=== PATIENT | female | born 1925 | race Caucasian/White ===

== ENCOUNTER → 2016-02-12 | Outpatient (CLI) | payer BC ==
[~2016-02-12] MED LIST: ALEN5TAB2 PO; AMOX875T PO; ASPEC81 PO; ASPI81TA21 PO; ATEN-173 PO; BIOTCAP2 PO; CALCTAB7 PO; CLTP PO; GLUC250C5 PO; GLUCTAB7 PO; HYDR12.55 PO; MAGN400T6 PO; MULT-506 PO; NTRGSL/4 UT; OMEP20CA9 PO; PANT40TA PO; PRAV40TA PO; SIMV5TAB2 PO; [UNRECOGNIZED DRUG - REMARK] PO; biotin PO
[2016-02-12 17:50] LABS: ALT/SGPT 27 U/L (12-78); AST/SGOT 19 U/L (15-37); BLOOD UREA NITROGEN 28 mg/dl (7-18); BUN/CREATININE RATIO 25.8 (10-20); CALCIUM 9.8 mg/dl (8.5-10.1); CARBON DIOXIDE 31 mmol/L (21-32); CHLORIDE 109 mmol/L (98-107); GLUCOSE 85 mg/dl (70-99); MAGNESIUM 2.4 mg/dl (1.8-2.4); POTASSIUM 4.2 mmol/L (3.5-5.1); SODIUM 145 mmol/L (136-145)
[2016-02-12 17:57] LABS: ALB/GLOB RATIO 1.3 (0.9-2); ALKALINE PHOSPHATASE 43 U/L (45-117); CHOLESTEROL 198 mg/dl (0-200); CHOLESTEROL/HDL RATIO 2.1; HDL CHOLESTEROL 94 mg/dl; LDL CHOLESTEROL CALCULATED 94 mg/dl; TRIGLYCERIDES 52 mg/dl (0-150); VERY LOW DENSITY LIPOPROT CALC 10 mg/dl
== END | disposition home or self-care (01) ==
LOC: C.LABPVFM 10:23
PROVIDERS: ATTEND Family Medicine
DX: E78.5 Hyperlipidemia, unspecified (principal); M81.0 Age-related osteoporosis without current pathological fracture; E83.42 Hypomagnesemia; R10.13 Epigastric pain

== ENCOUNTER 2016-03-23 20:41 | Emergency (ER) | payer BC ==
[~2016-03-23] VITALS: Ht 165.1 cm; Wt 57.6 kg
[~2016-03-23 20:41] MED LIST changes: -AMOX875T PO; -ASPI81TA21 PO; -BIOTCAP2 PO; -CALCTAB7 PO; -GLUCTAB7 PO; -HYDR12.55 PO; -MAGN400T6 PO; -NTRGSL/4 UT; -PANT40TA PO; -PRAV40TA PO
[2016-03-23 20:52] VITALS: TEMP 36.6; Ht 165.1 cm; Wt 57.6 kg
[2016-03-23] MEDS ORDERED: SODIUM CHLORIDE 0.9% 1000ML 1,000 ML IV STA (21:56)
[2016-03-23] MEDS ORDERED: SODIUM CHLORIDE 0.9% 1000ML 250 ML IV STA (21:56)
--- NOTE | 2016-03-23 21:58 | EMERGENCY ROOM VISIT NOTE ---
History Report prepared by Tarik: Joey Rowan Under the Supervision of: Dr. Joey Yepez M.D. First contact with patient: 21:44 Chief Complaint: ABDOMINAL PAIN Stated Complaint: ABD PAIN Nursing Triage Summary: abd pain since 1800 History of Present Illness The patient is a 89 year old female who presents to the Emergency Room with complaints of waxing and waning lower abdominal pain beginning about 3 hours ago. She notes she has some chest pain yesterday lasting a few seconds which resolved on its own, but she denies any cough or diarrhea. She has never had these symptoms before. The patient denies any previous abdominal surgeries, and denies any history of diverticulitis, or kidney stones. She denies taking any blood thinners. 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 She is feeling much better at present Source of History: patient, family Onset: about 3 hours ago Position: abdomen (lower) Quality: other (abdominal pain) Timing: waxes/wanes Associated Symptoms: + chest pain (lasting a few seconds and resolving on its own), No cough, No diarrhea Review of Systems See HPI for pertinent positives & negatives. A total of 10 systems reviewed and were otherwise negative. Past Medical & Surgical Medical Problems: (1) History of arthritis Old medical records were reviewed. Nurse's notes were reviewed and I agree with. Family History No pertinent family history stated. Social History Smoking Status: Never Smoker Drug Use: none Marital Status: Current/Historical Medications Scheduled Amoxicillin & Pot Clavulanate (Augmentin 875-125 mg), 875 MG PO BID Aspirin Enteric Coated (Ecotrin Or Generic), 81 MG PO DAILY Atenolol (Tenormin), 25 MG PO DAILY Biotin (Biotin 5000), 1 CAP PO DAILY Calcium Carbonate-Vitamin D W/ (Caltrate 600 Plus), 1 TAB PO DAILY Jhmqyhogoxr-Rgslthnhabn-Rmr C- (Glucosamine Chondroitin), TABS PO DAILY Hydrochlorothiazide (Hydrochlorothiazide), 1 TAB PO DAILY Magnesium Oxide (Mag-Ox), 400 MG PO DAILY Multivitamin (Multivitamin), 1 TAB PO DAILY Nitroglycerin (Nitrostat), 0.4 MG UT PRN Pantoprazole (Protonix), 40 MG PO DAILY Pravastatin Sodium (Pravachol), 1 TAB PO DAILY Allergies Coded Allergies: No Known Allergies (Verified , NONE, 1/27/13) Physical Exam Vital Signs Date Time Temp Pulse Resp B/P Pulse Ox O2 Delivery O2 Flow Rate FiO2 03/24/16 00:21 63 16 167/81 99 03/23/16 20:52 36.6 62 18 207/85 98 Room Air Physical Exam General: Non ill appearing older female. Well developed well nourished in no acute distress, breathing comfortably on room air. Normal speech HEENT: Normal cephalic atraumatic. Pupils are equal round and reactive to light. Sclerae anicteric. He Extraocular movements are intact. Oropharynx is pink with moist mucous membranes. No swelling of the mouth lips or tongue. Neck: Supple with a midline trachea. No meningeal signs or stiffness, no JVD or bruits. No Stridor. Chest: Clear to auscultation bilaterally. No wheezes or rhonchi. No increased work of breathing. Heart: regular rate and rhythm. Abdomen: Minimal tenderness in lower mid abdomen. Extremities: No cyanosis clubbing or edema. No calf tenderness or assymetry Spine/Back. Non tender to palpation. No CVA tenderness Skin: Good turgor without rashes. Neurologic exam: Cranial nerves two through 12 are intact. Motor and sensation are intact and symmetrical throughout. Medical Decision & Procedures ER Provider Diagnostic Interpretation: CT results as stated below per my review and radiologist interpretation: CT OF THE ABDOMEN AND PELVIS WITHOUT CONTRAST, STONE PROTOCOL FINDINGS: No renal, ureteral or bladder calculi are identified. A cyst within the upper pole of the left kidney is noted. There is no hydronephrosis or hydroureter. Evaluation of the remainder of the abdomen and pelvis is significantly compromised on this unenhanced exam. There is a gallstone within the gallbladder. There is no pericholecystic or peripancreatic infiltration. Unenhanced images of liver, spleen, adrenal glands and pancreas are unremarkable. There is extensive sigmoid diverticulosis. Evaluation for diverticulitis is compromised on this exam but there is no convincing evidence for acute diverticulitis. There is a small amount of fluid within the pelvis, a nonspecific finding. No lymphadenopathy is present. No suspicious osseous lesion is present. The bladder is mildly distended. There may be minimal infiltration adjacent to the bladder. IMPRESSION: 1. No urinary calculi or hydronephrosis. 2. Cholelithiasis. 3. Small amount of fluid within the pelvis, a nonspecific finding. 4. Extensive sigmoid diverticulosis without evidence for acute diverticulitis although this exam is compromised given the lack of IV and oral contrast. 5. Mild distention of the bladder with possible minimal adjacent infiltration. This could be correlated with urinalysis. Electronically signed by: Martinez Diaz M.D. 03/23/2016 11:07 PM Dictated Date/Time: 03/23/2016 10:56 PM Laboratory Results 03/23/16 22:12 Red Blood Count 4.32, Mean Corpuscular Volume 88.0, Mean Corpuscular Hemoglobin 29.4, Mean Corpuscular Hemoglobin Concent 33.4, Mean Platelet Volume 10.9, Neutrophils (%) (Auto) 49.4, Lymphocytes (%) (Auto) 36.5, Monocytes (%) (Auto) 11.5, Eosinophils (%) (Auto) 2.1, Basophils (%) (Auto) 0.3, Neutrophils # (Auto ) 2.88, Lymphocytes # (Auto) 2.13, Monocytes # (Auto) 0.67, Eosinophils # (Auto ) 0.12, Basophils # (Auto) 0.02 03/23/16 22:12 Test 03/23/16 22:12 03/23/16 22:21 White Blood Count 5.83 K/uL (4.8-10.8) Red Blood Count 4.32 M/uL (4.2-5.4) Hemoglobin 12.7 g/dL (12.0-16.0) Hematocrit 38.0 % (37-47) Mean Corpuscular Volume 88.0 fL (80-100) Mean Corpuscular Hemoglobin 29.4 pg (25-34) Mean Corpuscular Hemoglobin Concent 33.4 g/dl (32-36) Platelet Count 275 K/uL (130-400) Mean Platelet Volume 10.9 fL (7.4-10.4) Neutrophils (%) (Auto) 49.4 % Lymphocytes (%) (Auto) 36.5 % Monocytes (%) (Auto) 11.5 % Eosinophils (%) (Auto) 2.1 % Basophils (%) (Auto) 0.3 % Neutrophils # (Auto) 2.88 K/uL (1.4-6.5) Lymphocytes # (Auto) 2.13 K/uL (1.2-3.4) Monocytes # (Auto) 0.67 K/uL (0.11-0.59) Eosinophils # (Auto) 0.12 K/uL (0-0.5) Basophils # (Auto) 0.02 K/uL (0-0.2) RDW Standard Deviation 42.3 fL (36.4-46.3) RDW Coefficient of Variation 13.1 % (11.5-14.5) Immature Granulocyte % (Auto) 0.2 % Immature Granulocyte # (Auto) 0.01 K/uL (0.00-0.02) Urine Color YELLOW Urine Appearance CLEAR (CLEAR) Urine pH 7.0 (4.5-7.5) Urine Specific [place] 1.006 (1.000-1.030) Urine Protein NEG (NEG) Urine Glucose (UA) NEG (NEG) Urine Ketones NEG (NEG) Urine Occult Blood NEG (NEG) Urine Nitrite NEG (NEG) Urine Bilirubin NEG (NEG) Urine Urobilinogen NEG (NEG) Urine Leukocyte Esterase SMALL (NEG) Urine WBC (Auto) 1-5 /hpf (0-5) Urine RBC (Auto) 0-4 /hpf (0-4) Urine Hyaline Casts (Auto) 0 /lpf (0-5) Urine Epithelial Cells (Auto) 10-20 /lpf (0-5) Urine Bacteria (Auto) NEG (NEG) Anion Gap 7.0 mmol/L (3-11) Est Creatinine Clear Calc Drug Dose 35.3 ml/min Estimated GFR () 59.0 Estimated GFR (Non- 50.9 BUN/Creatinine Ratio 28.8 (10-20) Calcium Level 9.8 mg/dl (8.5-10.1) Total Bilirubin 0.8 mg/dl (0.2-1) Direct Bilirubin 0.2 mg/dl (0-0.2) Aspartate Amino Transf (AST/SGOT) 25 U/L (15-37) Alanine Aminotransferase (ALT/SGPT) 26 U/L (12-78) Alkaline Phosphatase 58 U/L (45-117) Total Protein 7.3 gm/dl (6.4-8.2) Albumin 3.6 gm/dl (3.4-5.0) Lipase 228 U/L (73-393) Bedside Troponin I 0.010 ng/ml (0-0.045) Laboratory studies as stated above per my review. Medications Administered Medications (Trade) Dose Ordered Sig/Zurdo Route Start Time Stop Time Status Last Admin Dose Admin Sodium Chloride 250 ml @ 999 mls/hr Q16M STAT IV 03/23/16 21:56 03/23/16 22:11 DC 03/23/16 21:56 999 MLS/HR Sodium Chloride (Nss 1000ml) 1,000 ml @ 100 mls/hr Q10H STAT IV 03/23/16 21:56 03/24/16 07:55 03/23/16 21:56 100 MLS/HR Amoxicillin/ Clavulanate Potassium (Augmentin 875MG Home Pack) 1 homepack UD ONCE PO 03/24/16 00:00 03/24/16 00:01 DC 03/24/16 00:00 1 HOMEPACK ECG Indication: abdominal pain Rate (beats per minute): 62 Rhythm: normal sinus Findings: RBBB (incomplete), no acute ischemic change Comparison ECG Date: March 05, 2012 Change: no significant change ED Course 2145: Past medical records reviewed. The patient was evaluated in room C2B, and a complete history and physical examination were performed. 2156: Ordered NSS 1,000 ml @ 100 mls/hr IV, and NSS 250 ml @ 999 mls/hr IV. 0000: Ordered Amoxicillin/Clavulanate Potassium 1 homepack PO. 0005: Upon reevaluation, the patient is doing well. I discussed the results and treatment plan with the patient. She verbalized agreement of the treatment plan. The patient was discharged home. Medical Decision Differentials include kidney stone, bowel obstruction, diverticulitis, infection , and electrolyte or metabolic abnormality. This patient comes in as described above. She was placed in room CT. She's been having lower abdominal pain .she feels better at present. she looks well on exam .she is afebrile. IV access established and she was hydrated with IV normal saline. she did not require any pain medication. she's had no white count or fever to suggest infection . she's had no acute electrolyte or metabolic abnormalities. I did a CAT scan of her abdomen and she has extensive diverticulosis but no definite diverticulitis. she does of distended bladder.a UAhas been ordered as well. She's remained stable. Reading her CAT scan it's possible that she has an early diverticulitis. Her urinalysis is also pending. I will put her on Augmentin which will cover both these possibilities .she desires to go home and a culture is pending from the as well. She was given Augmentin 875 mg here as well as prescription for twice a day for 10 days. She was given use [id number] Tylenol for pain but do not exceed the over-the- counter recommended dosages. Return if: increasing pain, worsening of symptoms , fever or chills, any new problems or concerns. She is happy with plan and discharged to home. She is followed regular doctor next 1-2 days for recheck. Impression Primary Impression: Lower abdominal pain Additional Impression: Diverticulitis Scribe Attestation The scribe's documentation has been prepared under my direction and personally reviewed by me in its entirety. I confirm that the note above accurately reflects all work, treatment, procedures, and medical decision making performed by me. Departure Information Dispostion Home / Self-Care Prescriptions Amoxicillin & Pot Clavulanate (Augmentin 875-125 mg) 1 Tab Tab 875 MG PO BID for 10 Days, #20 TAB Prov: Joey Yepez M.D. 03/23/16 Referrals Kim Saldana M.D. (PCP) Patient Instructions [facility] Additional Instructions Rest. Drink plenty of fluids. Use Augmentin 875 mg twice a day for 10 days total For pain, may use Tylenol a maximum of 650 mg every 6 hours. Do not take with any other medications containing acetaminophen/Tylenol Return if: Increasing pain, fever chills, worsening of symptoms, any new problems or concerns. Problem Qualifiers
[2016-03-23] MEDS ORDERED: ASPI81TA21 PO (22:35)
[2016-03-23] MEDS ORDERED: CALCTAB7 PO (22:35)
[2016-03-23 22:39] LABS: BASO % 0.3 %; BASO ABS # 0.02 K/uL (0-0.2); COMPLETE YES; EOS % 2.1 %; IG% 0.2 %; LYMPH % 36.5 %; LYMPH ABS # 2.13 K/uL (1.2-3.4); MEAN CORPUSCULAR HEMOGLOBIN 29.4 pg (25-34); MEAN CORPUSCULAR HGB CONC 33.4 g/dl (32-36); MEAN PLATELET VOLUME 10.9 fL (7.4-10.4); MONO % 11.5 %; NEUT % 49.4 %; PLATELET COUNT 275 K/uL (130-400); RED BLOOD COUNT 4.32 M/uL (4.2-5.4); WHITE BLOOD COUNT 5.83 K/uL (4.8-10.8)
[2016-03-23] MEDS ORDERED: PRAV40TA PO (22:41)
[2016-03-23] MEDS ORDERED: NTRGSL/4 UT (22:41)
[2016-03-23] MEDS ORDERED: PANT40TA PO (22:41)
[2016-03-23] MEDS ORDERED: HYDR12.55 PO (22:41)
[2016-03-23] MEDS ORDERED: GLUCTAB7 PO (22:41)
[2016-03-23] MEDS ORDERED: MAGN400T6 PO (22:41)
[2016-03-23] MEDS ORDERED: BIOTCAP2 PO (22:42)
[2016-03-23 22:58] LABS: BUN/CREATININE RATIO 28.8 (10-20); CALCIUM 9.8 mg/dl (8.5-10.1); CREATININE 0.99 mg/dl (0.60-1.20)
--- NOTE | 2016-03-23 23:09 | DIAGNOSTIC IMAGING REPORT ---
CT OF THE ABDOMEN AND PELVIS WITHOUT CONTRAST, STONE PROTOCOL CLINICAL HISTORY: Lower abdominal pain. COMPARISON STUDY: CT of the abdomen and pelvis August 10, 2011 and right upper quadrant ultrasound June 06, 2015. TECHNIQUE: Helical axial images of the abdomen and pelvis were obtained without IV or oral contrast according to renal stone protocol. FINDINGS: No renal, ureteral or bladder calculi are identified. A cyst within the upper pole of the left kidney is noted. There is no hydronephrosis or hydroureter. Evaluation of the remainder of the abdomen and pelvis is significantly compromised on this unenhanced exam. There is a gallstone within the gallbladder. There is no pericholecystic or peripancreatic infiltration. Unenhanced images of liver, spleen, adrenal glands and pancreas are unremarkable. There is extensive sigmoid diverticulosis. Evaluation for diverticulitis is compromised on this exam but there is no convincing evidence for acute diverticulitis. There is a small amount of fluid within the pelvis, a nonspecific finding. No lymphadenopathy is present. No suspicious osseous lesion is present. The bladder is mildly distended. There may be minimal infiltration adjacent to the bladder. IMPRESSION: 1. No urinary calculi or hydronephrosis. 2. Cholelithiasis. 3. Small amount of fluid within the pelvis, a nonspecific finding. 4. Extensive sigmoid diverticulosis without evidence for acute diverticulitis although this exam is compromised given the lack of IV and oral contrast. 5. Mild distention of the bladder with possible minimal adjacent infiltration. This could be correlated with urinalysis. Electronically signed by: Martinez Diaz M.D. 03/23/2016 11:07 PM Dictated Date/Time: 03/23/2016 10:56 PM
[2016-03-23] MEDS ORDERED: AMOX875T PO (23:56)
[2016-03-24] MEDS ORDERED: AMOXICIL/CLAVU 875MG HOME PACK PO ONE
[2016-03-24 00:21] VITALS: BP 167/81; PULSE 63; O2SAT 99
[2016-03-24 00:50] LABS: URINE APPEARANCE CLEAR (CLEAR); URINE BILIRUBIN NEG (NEG); URINE COLOR YELLOW; URINE NITRITE NEG (NEG); URINE SPECIFIC GRAVITY 1.006 (1.000-1.030); UROBILINOGEN NEG (NEG)
[2016-03-24 00:55] LABS: MANUAL MICROSCOPIC REQUIRED? NO; REVIEW REQ? NO
== END 2016-03-24 00:22 | disposition home or self-care (01) ==
LOC: C.EDB 20:42 → C.EDC 03-24 00:22
DX: K57.92 Diverticulitis of intestine, part unspecified, without perforation or abscess without bleeding (principal); Z79.82 Long term (current) use of aspirin

== ENCOUNTER → 2016-07-15 | Outpatient (CLI) | payer BC ==
[~2016-07-15] MED LIST changes: -ALEN5TAB2 PO; -ASPEC81 PO; +ASPI81TA21 PO; +BIOTCAP2 PO; +CALCTAB7 PO; -CLTP PO; -GLUC250C5 PO; +GLUCTAB7 PO; +HYDR12.55 PO; +MAGN400T6 PO; +NTRGSL/4 UT; -OMEP20CA9 PO; +PANT40TA PO; +PRAV40TA PO; -SIMV5TAB2 PO; -[UNRECOGNIZED DRUG - REMARK] PO; -biotin PO
[2016-07-15 13:33] LABS: ALB/GLOB RATIO 1.2 (0.9-2); ALKALINE PHOSPHATASE 39 U/L (45-117); ALT/SGPT 28 U/L (12-78); AST/SGOT 22 U/L (15-37); BLOOD UREA NITROGEN 27 mg/dl (7-18); BUN/CREATININE RATIO 26.5 (10-20); CALCIUM 9.7 mg/dl (8.5-10.1); CARBON DIOXIDE 30 mmol/L (21-32); CHLORIDE 108 mmol/L (98-107); GLUCOSE 83 mg/dl (70-99); POTASSIUM 4.1 mmol/L (3.5-5.1); SODIUM 145 mmol/L (136-145)
== END | disposition home or self-care (01) ==
LOC: C.LABPVFM 08:04
PROVIDERS: ATTEND Family Medicine
DX: I10 Essential (primary) hypertension (principal); E78.5 Hyperlipidemia, unspecified; M54.5 Low back pain; R10.13 Epigastric pain

== ENCOUNTER → 2016-09-13 | Outpatient (CLI) | payer BC ==
[2016-09-22 16:30] LABS: O&P SOURCE OTHER-STOOL
== END | disposition home or self-care (01) ==
LOC: C.LABPVFM 12:41
PROVIDERS: ATTEND Family Medicine
DX: R19.7 Diarrhea, unspecified (principal)

== ENCOUNTER → 2016-10-28 | Outpatient (CLI) | payer BC ==
--- NOTE | 2016-10-28 14:45 | DIAGNOSTIC IMAGING REPORT ---
KUB CLINICAL HISTORY: ABD PAIN pain COMPARISON STUDY: 07/31/2008 FINDINGS: Mild nonobstructive small bowel ileus.. Calcification overlying the right kidney measuring 7 mm. No secondary signs of free air. No colonic distention. IMPRESSION: Mild nonobstructive ileus. 7 mm right renal calcification The above report was generated using voice recognition software. It may contain grammatical, syntax or spelling errors. Electronically signed by: Tam Juarez M.D. 10/28/2016 2:43 PM Dictated Date/Time: 10/28/2016 2:42 PM
== END | disposition home or self-care (01) ==
LOC: C.RADPV 14:26
PROVIDERS: ATTEND Family Medicine
DX: R10.9 Unspecified abdominal pain (principal); K56.7 Ileus, unspecified; N20.0 Calculus of kidney

== ENCOUNTER → 2017-03-03 | Outpatient (CLI) | payer BC ==
[2017-03-03 13:28] LABS: ALBUMIN 3.9 gm/dl (3.4-5.0); ALT/SGPT 31 U/L (12-78); BLOOD UREA NITROGEN 29 mg/dl (7-18); CALCIUM 10.1 mg/dl (8.5-10.1); CARBON DIOXIDE 30 mmol/L (21-32); CHOLESTEROL 190 mg/dl (0-200); CREATININE 1.13 mg/dl (0.60-1.20); GLUCOSE 92 mg/dl (70-99); POTASSIUM 4.1 mmol/L (3.5-5.1); SODIUM 141 mmol/L (136-145)
[2017-03-03 13:32] LABS: ALKALINE PHOSPHATASE 37 U/L (45-117); AST/SGOT 26 U/L (15-37); LDL CHOLESTEROL CALCULATED 88 mg/dl; TOTAL PROTEIN 7.2 gm/dl (6.4-8.2)
== END | disposition home or self-care (01) ==
LOC: C.LABPVFM 09:56
PROVIDERS: ATTEND Family Medicine
DX: I10 Essential (primary) hypertension (principal); E78.5 Hyperlipidemia, unspecified; E83.42 Hypomagnesemia; R42 Dizziness and giddiness; K21.9 Gastro-esophageal reflux disease without esophagitis; R10.9 Unspecified abdominal pain

== ENCOUNTER → 2017-03-10 | Outpatient (CLI) | payer BC ==
--- NOTE | 2017-03-10 13:07 | DIAGNOSTIC IMAGING REPORT ---
CT SCAN OF THE ABDOMEN AND PELVIS WITHOUT CONTRAST CLINICAL HISTORY: R10.9 diffuse abdominal pain COMPARISON STUDY: 03/23/2016 TECHNIQUE: CT scan of the abdomen and pelvis was performed from the lung bases to the proximal femurs. Images are reviewed in the axial, sagittal, and coronal planes. IV contrast was not administered for this examination. A dose lowering technique was utilized adhering to the principles of ALARA. CT DOSE: 328.49 mGycm FINDINGS: Lower chest: There are minor right lower lobe tree-in-bud opacities, likely postinflammatory Liver: The unenhanced liver is normal in size, contour, and attenuation. There is no intrahepatic biliary ductal dilatation. Gallbladder: Cholelithiasis Spleen: Normal in size and attenuation. Pancreas: Unremarkable. Adrenal glands: Unremarkable. Kidneys: There is a 51 mm upper pole left renal cyst. There is no significant hydronephrosis. No ureteral or bladder calculi are visualized Bowel: There is borderline gastric wall thickening. There are no transition zones indicate bowel obstruction. There is fecal retention. There is colonic diverticulosis. There are no acute peridiverticular inflammatory changes, given the limitations of a noncontrast study. There are no findings to indicate acute appendicitis. Peritoneum: There is no intraperitoneal free air or abdominal ascites. Vasculature: The abdominal aorta is normal in course and caliber. Adenopathy: There is a stable low density 1 cm left para-aortic nodule just below the level the left renal vein. This is not felt to be of acute clinical significance. Pelvic viscera: There is probable air within the endometrial cavity. Please correlate with any history of recent instrumentation. This could represent a fistula. Skeletal structures: No destructive osseous lesions are seen. IMPRESSION: 1. Examination limited due to the lack of intravenous and oral contrast 2. Cholelithiasis 3. Extensive diverticulosis 4. Fecal retention 5. Borderline gastric wall thickening 6. No evidence of bowel obstruction. No evidence of free air 7. Probable air within the endometrial cavity. Please correlate with any history of recent instrumentation. A fistula with bowel must be considered within the differential. Electronically signed by: Avinash Thomas M.D. 03/10/2017 1:05 PM Dictated Date/Time: 03/10/2017 12:52 PM
== END | disposition home or self-care (01) ==
LOC: C.CTS 12:12
PROVIDERS: ATTEND Family Medicine
DX: R10.9 Unspecified abdominal pain (principal); K80.20 Calculus of gallbladder without cholecystitis without obstruction; K57.30 Diverticulosis of large intestine without perforation or abscess without bleeding; K59.00 Constipation, unspecified